=== PATIENT | female | born 1955 | race Caucasian/White ===

== ENCOUNTER 2018-05-03 15:12 | Emergency (ER) | payer MEDICAID ==
[2018-05-03] MEDS ORDERED: traMADol 50 MG TAB PO ONE (15:39)
[2018-05-03] MEDS ORDERED: DIAZEPAM 5 MG TAB PO ONE (15:39)
[2018-05-03] MEDS ORDERED: ACETAMINOPHEN 500 MG TAB PO ONE (15:40)
--- NOTE | 2018-05-03 16:10 | EDPHY ---
H & P Time Seen by Provider: 05/03/18 15:14 HPI/ROS: This patient describes gradual onset of left sciatic pain-posterior hip pain that radiates down her lateral thigh past her knee today at around 10:00 a.m.. The onset was gradual after sitting up from going to the bathroom. She took 400 mg of ibuprofen 11:00 a.m. Without significant improvement and reports severe pain that worsens with certain movements. She had a lot less severe episode 2 months ago of similar nature but did not see a clinician for that episode. ROS: Constitutional: No fevers or chills. No fatigue. HEENT: No complaints pulmonary: No complaints cardiovascular: No swelling to the affected lower extremity GI: No complaints Neuro: No numbness tingling or focal weakness. No bowel or bladder incontinence Musculoskeletal: No recent injuries or increase in exercise 10 point review of symptoms is performed and otherwise negative with exception of pertinent positives and negatives listed in HPI and ROS Past Medical/Surgical History: Hypertension Obesity Smoking Status: Never smoked Physical Exam: Physical Exam Vital signs are normal. General: Pleasant obese 63-year-old female No acute distress HEENT: Atraumatic. Eyes: Pupils equal and react to light. Extraocular motions are intact. Lungs: Clear to auscultation bilaterally. No respiratory distress. Cardiac: Regular rate and rhythm with no murmur gallop rub Brisk capillary refill is intact throughout. Pulses are 2+ and symmetric in the affected extremity. Back: No midline tenderness. She has tenderness the left sciatic notch that reproduces her symptoms. She has positive straight leg raise at the right- sided at about 12 degrees. This elicits pain on the left side of the low back. Skin: No rash or pallor. Neuro: Alert and oriented x3 . She maintains 5/5 strength in great toe plantar flexion but has weakness in dorsiflexion of the left she attributes to multiple prior foot surgeries rather than actual weakness. She maintains normal light touch sensory exam bilateral lower extremities. She has 2+ symmetric patellar DTRs bilaterally and weak but symmetric Achilles DTRs bilaterally. I appreciate no sensorimotor deficits. Initial differential diagnosis: Sciatica with radicular symptoms, discogenic disease with radiculopathy, hip strain Constitutional: Initial Vital Signs Temperature (C) 36.9 C 05/03/18 15:18 Heart Rate 95 05/03/18 15:18 Respiratory Rate 20 05/03/18 15:18 Blood Pressure 175/94 H 05/03/18 15:18 O2 Sat (%) 95 05/03/18 15:18 O2 Delivery Mode Room Air Allergies/Adverse Reactions: cephalexin Allergy (Verified 05/03/18 15:17) Penicillins Allergy (Verified 05/03/18 15:17) Home Medications: Medication Instructions Recorded Gabapentin [Neurontin 300 MG (*)] 300 mg PO HS #20 cap 05/03/18 Metformin HCl 05/03/18 Methocarbamol [Robaxin 750 mg (*)] 750 - 1,500 mg PO QID PRN #30 tab 05/03/18 traMADol [Ultram 50 mg (*)] 50 - 100 mg PO Q4 PRN #20 tab 05/03/18 MDM/Departure - MDM Diagnostics: POC urine dip is unremarkable exception of minimal leukocytes. Imaging Results: Lumbar spine two views-mild degenerative changes otherwise normal by my interpretation Medications Given: Discontinued Medications Acetaminophen (Tylenol) 1,000 mg PO EDNOW ONE Stop: 05/03/18 15:41 Last Admin: 05/03/18 15:52 Dose: 1,000 mg Diazepam (Valium) 10 mg PO EDNOW ONE Stop: 05/03/18 15:40 Last Admin: 05/03/18 15:49 Dose: 10 mg Tramadol HCl (Ultram) 100 mg PO EDNOW ONE Stop: 05/03/18 15:40 Last Admin: 05/03/18 15:48 Dose: 100 mg ED Course/Re-evaluation: Oral Valium, Tylenol and tramadol with mild relief followed by gabapentin with further relief Discussion: Patient with sciatica without evidence of neuro deficits although she does have a positive leg raise test suggests nerve impingement. No evidence of cauda equina. The no other red flag findings. She improved in terms of pain with treatment here. Will send her out on gabapentin, Robaxin, tramadol and Tylenol with plan to follow up with primary care physician for ongoing symptoms. She understands need to return should she develop worsening symptoms despite treatment plan - Depart Disposition: Home, Routine, Self-Care Clinical Impression: Sciatica Qualifiers: Laterality: left Qualified Code(s): M54.32 - Sciatica, left side Condition: Good Instructions: Sciatica (ED) Additional Instructions: Diagnosis: Sciatica Plan: Continue ibuprofen 400-600 mg per 6 hr as needed In addition Tylenol for pain In addition methocarbamol muscle relaxant as needed In addition take tramadol if needed for pain that prevents sleep for severe despite other medications. No driving, alcohol work on tramadol. Gabapentin at nighttime-bedtime in addition to help with pain Try gentle stretches of your hamstring and piriformis muscles daily. Call your primary care physician to arrange follow-up appointment for 3-5 days for recheck. Return for any significant worsening despite treatment plan Prescriptions: Gabapentin [Neurontin 300 MG (*)] 300 mg PO HS #20 cap Methocarbamol [Robaxin 750 mg (*)] 750 - 1,500 mg PO QID PRN #30 tab PRN Reason: Muscle Spasms traMADol [Ultram 50 mg (*)] 50 - 100 mg PO Q4 PRN #20 tab PRN Reason: breakthrough pain Referrals: Zulema Coon MD [Primary Care Provider] - As per Instructions
[2018-05-03 16:49] VITALS: BP 151/101
== END 2018-05-03 17:09 | disposition home or self-care (01) ==
LOC: CED 15:12
DX: M54.32 Sciatica, left side (principal); E66.9 Obesity, unspecified; Z68.38 Body mass index [BMI] 38.0-38.9, adult
CPT/HCPCS: 72100-PO